=== PATIENT | male | born 1990 | race Caucasian/White ===

== ENCOUNTER 2016-07-28 01:17 | Emergency (ER) | payer MEDICAID ==
[2016-07-28] MEDS ORDERED: LORazepam 2 MG/ML INJ IVP ONE (01:36)
--- NOTE | 2016-07-28 01:48 | EDPHY ---
H & P Stated Complaint: CI Time Seen by Provider: 07/28/16 01:30 HPI/ROS: Chief complaint: Combative, intoxication HPI: 25-year-old male who was found in history is agitated and intoxicated. When police confronted him he became combative and began fighting with them. He does admit to drinking alcohol and using acid tonight. He required 50 mg of Benadryl, 10 mg of Haldol and Versed by EMS to bring calm him down a bit. He still combative. Patient is not call cooperative with history and is not answering any further questions. ROS: Unavailable as patient is uncooperative with questions Past medical history: Unknown Medications: Unknown Allergies: Unknown Physical exam: Gen: Awake, Alert, agitative and aggressive, profane and insulting, moving all extremities HEENT: Head: Atraumatic Eyes: PERRLA, EOMI Nose: No epistaxis Mouth: Normal dentition, Airway patent Face: No deformity Neck: non-tender, no stepoff, Full ROM without pain Chest: non-tender, lungs CTA Heart: normal heart tones Abd: soft, non-tender, atraumatic Pelvis: non-tender, stable to AP and Lateral compression Back: atraumatic, no midline tenderness Ext: atramatic, full ROM Skin: no rash Neuro: CN II-XII intact, Strength 5/5 in all extremities, sensation intact in all extremities - Personal History Current Tetanus/Diphtheria Vaccine: Unsure Current Tetanus Diphtheria and Acellular Pertussis (TDAP): Unsure - Medical/Surgical History Other PMH: unobtainable Constitutional: Initial Vital Signs Temperature (C) 38 C 07/28/16 01:35 Heart Rate 110 H 07/28/16 01:35 Respiratory Rate 18 07/28/16 01:35 Blood Pressure 117/72 07/28/16 01:35 O2 Sat (%) 92 07/28/16 01:35 O2 Delivery Mode Room Air Allergies/Adverse Reactions: Unable to Assess Allergy (Unverified 07/28/16 01:35) Home Medications: Medication Instructions Recorded Unobtainable 07/28/16 Medical Decision Making ED Course/Re-evaluation: 0330 patient is ambulating unassisted in the emergency department. He is awake and alert. He is medically cleared for detention. - Data Points Medications Given: Discontinued Medications Lorazepam (Ativan Injection) 2 mg IVP EDNOW ONE Stop: 07/28/16 01:37 Last Admin: 07/28/16 01:37 Dose: 2 mg Departure - Departure Disposition: Home, Routine, Self-Care Clinical Impression: Alcoholic intoxication, Polysubstance abuse Condition: Good Instructions: Alcohol Intoxication (ED), Polysubstance Abuse (ED) Additional Instructions: Medically clear for detention. Referrals: Patient,NotPresent [Primary Care Provider] - As per Instructions
[2016-07-28 04:09] VITALS: BP 131/62; PULSE 72; RESP 16; TEMP 98.1; O2SAT 96
== END 2016-07-28 04:09 | disposition home or self-care (01) ==
DX: F19.10 Other psychoactive substance abuse, uncomplicated (principal); F10.129 Alcohol abuse with intoxication, unspecified
CPT/HCPCS: 96374